=== PATIENT | female | born 1940 | race Caucasian/White ===

== ENCOUNTER 2021-12-10 11:30 | Observation (INO) ==
--- NOTE | 2021-11-13 08:18 | PAT Medication Instructions ---
Medication Instructions Date of Service November 13, 2021 Home Medications amlodipine 5 mg tablet 5 mg PO QAM aspirin 81 mg tablet,delayed release (Aspirin Low Dose) 81 mg PO QAM atenolol 25 mg tablet 25 mg PO QAM cholecalciferol (vitamin D3) 25 mcg (1,000 unit) tablet (Vitamin D3) 25 mcg PO QAM hydroxyzine HCl 25 mg tablet 25 mg PO DAILY PRN losartan 50 mg tablet 50 mg PO QAM metformin 500 mg tablet 500 mg PO QAM omega-3 fatty acids 500 mg PO QAM pravastatin 40 mg tablet 40 mg PO QAM trazodone 50 mg tablet 50 mg PO HS PRN ASK your prescriber and surgeon aspirin 81 mg tablet,delayed release (Aspirin Low Dose) 81 mg PO QAM STOP taking 2 weeks before surgery omega-3 fatty acids 500 mg PO QAM DO NOT take the morning of surgery cholecalciferol (vitamin D3) 25 mcg (1,000 unit) tablet (Vitamin D3) 25 mcg PO QAM losartan 50 mg tablet 50 mg PO QAM metformin 500 mg tablet 500 mg PO QAM Take morning of surgery With a small sip of water, OTHERWISE NOTHING TO EAT OR DRINK AFTER MIDNIGHT: amlodipine 5 mg tablet 5 mg PO QAM atenolol 25 mg tablet 25 mg PO QAM hydroxyzine HCl 25 mg tablet 25 mg PO DAILY PRN(if needed) pravastatin 40 mg tablet 40 mg PO QAM Take evening before surgery trazodone 50 mg tablet 50 mg PO HS PRN(if needed) Other Notes If you have any questions please call us at [phone] or [phone] or [phone] or [phone]
--- NOTE | 2021-11-13 08:45 | Anesthesiology Consultation ---
Date of Service November 13, 2021 Assessment & Plan (1) Encounter for pre-operative examination: - will fax PAT testing to PCP for continuity of care. - check BSG am DOS. - awaiting upcoming PCP pre-op evaluation scheduled 11/17 per S. - PONV: Pt reports needing IV medication and scop patch in past, denies adverse effects with scop patch. Will Rx scop patch for am DOS given reported severe PONV with just IV medication. - COVID screening: Per assessment on 11/13/2021: Travel screen negative, no known COVID-19 positive contacts or current COVID-19 related symptoms in past 2 weeks. Patient vaccinated. Surgeon arranging preop COVID testing, scheduled 12/08/2021. Awaiting results. Chart Review Chart Review: Pending: Refer to Additional Notes / Consult section and Patient seen in Pre Admission Testing Teaching & Discussion Pre-Anesthesia Teaching/Discussion Notes: Instructed NPO after midnight before surgery, except medications with 15 cc of water. Medication instructions provided according to the PAT guidelines. History Surgery Operation Date: 12/10/21 11:20 Proposed Procedures p Right Total Shoulder Arthroplasty - Brad Valladares MD Height/Weight Height: 5 ft 5 in Weight: 68.9 kg Allergies Allergy/AdvReac Type Severity Reaction Status Date / Time latex Allergy Mild Rash Verified 11/12/21 16:35 Medications Home Medications Medication Instructions Recorded Confirmed Last Taken amlodipine 5 mg tablet 5 mg PO QAM 11/12/21 11/12/21 Unknown aspirin 81 mg tablet,delayed 81 mg PO QAM 11/12/21 11/12/21 Unknown release (Aspirin Low Dose) atenolol 25 mg tablet 25 mg PO QAM 11/12/21 11/12/21 Unknown cholecalciferol (vitamin D3) 25 25 mcg PO QAM 11/12/21 11/12/21 Unknown mcg (1,000 unit) tablet (Vitamin D3) hydroxyzine HCl 25 mg tablet 25 mg PO DAILY PRN 11/12/21 11/12/21 Unknown losartan 50 mg tablet 50 mg PO QAM 11/12/21 11/12/21 Unknown metformin 500 mg tablet 500 mg PO QAM 11/12/21 11/12/21 Unknown omega-3 fatty acids 500 mg PO QAM 11/12/21 11/12/21 Unknown pravastatin 40 mg tablet 40 mg PO QAM 11/12/21 11/12/21 Unknown trazodone 50 mg tablet 50 mg PO HS PRN 11/12/21 11/12/21 Unknown Past Medical History Medical History (Updated 11/13/21 @ 09:09 by Melita Wu PA-C) Aspergillus fumigatus h/o-RLL pneumonia on voriconazole x 6 mos 06/2019-12/2019, follows with [facility] pulm CAD (coronary artery disease) non occlusive per [facility] records and most recent cath in 2007 CKD (chronic kidney disease) stage 3, GFR 30-59 ml/min follows with [facility] nephrology Diabetes mellitus, type 2 NIDDM GERD (gastroesophageal reflux disease) Hearing deficit History of blood transfusion 1960 History of uterine cancer (~1973) sx only Hyperlipidemia Hypertension pt monitors at home, recently started on amlodipine by nephrology Nausea and vomiting after administration of anesthetic agent Pt receives scop patch Pulmonary nodules follows with [facility] pulm-monitoring Transient ischemic attack (TIA) hx of---pt unaware of them, states PCP told her she one a long time ago--no deficits, no neurologist Patient denies h/o seizures, heart attack, heart failure, blood clots or blood transfusions. Exercise / Class Metabolic Activity II 4-5 Yardwork/Stairs/Walk up hill (denies CP or SOB with 1 FOS) Past Family History Family History Son Family history of reaction to anesthesia difficulty urinating after a surgery (pt unsure what surgery it was) Past Surgical History Surgical History History of appendectomy History of bilateral cataract extraction History of bladder suspension procedure x3 History of carpal tunnel release of both wrists History of cholecystectomy History of colonoscopy History of tooth extraction History of total hysterectomy with bilateral salpingo-oophorectomy (BSO) Past Anesthesia History No Hx of Anesthesia Complications and Other (son with post-op urinary retention) History of PONV History of PONV (Pt reports needing a scop patch plus IV medication, denies adverse effects with scop patch in past) and Hx of Motion Sickness Social History Smoking Status: Never smoker Do You Dip or Chew Tobacco: No Hx Alcohol Use: No Hx Substance Use: No substance use type: does not use Review of Systems Patient denies chest pain, shortness of breath, dyspnea on exertion, snoring, witnessed apneas, fever, chills, cough, wheezing, or palpitations. Physical Exam Vital Signs Vitals BP 168/78 (Pt reports home readings within PCP/nephrology goal range, she was advised to continue monitoring home BP and notify nephrology if outside advised range) She verbalized understanding, states will check later today, denies questions or concerns. P 68 TEMP 98.6 SP02 96% on RA RESP 17 Physical Full cervical extension range of motion without pain TMD 3.5 finger breaths Mallampati Score 3 Dentition: intact, full upper denture, denies chipped or loose teeth, caps/crowns or implants Lungs: normal respiratory effort. Clear throughout to auscultation, no adventitious breath sounds Cardiac: regular rate and rhythm, no murmurs noted Carotid arteries: negative bruit bilat Lab Results Anesthesia Preop Results Results Anesthesia Widget: WBC 5.92 K/uL (4.8-10.8) 11/13/21 Hgb 12.4 g/dL (12.0-16.0) 11/13/21 Hct 38.8 % (37-47) 11/13/21 Plt 339 K/uL (130-400) 11/13/21 Na 143 mmol/L (136-145) 11/13/21 K 4.3 mmol/L (3.5-5.1) 11/13/21 Cl 106 mmol/L (98-107) 11/13/21 CO2 27 mmol/L (21-32) 11/13/21 BUN 28 mg/dl (6-23) H 11/13/21 Creat 1.25 mg/dl (0.6-1.2) H 11/13/21 Glucose Level 96 mg/dl (70-99(Fasting)) 11/13/21 PT 10.7 Seconds (9.0-12.0) 11/13/21 PTT 26.2 Seconds (21.0-31.0) 11/13/21 INR 1.0 (0.9-1.1) 11/13/21 HA1c 6.0 % (4.5-5.6) H 11/13/21 Urine Color Yellow 11/13/21 Urine Appearance Cloudy (Clear) A 11/13/21 Urine pH 7.5 (4.5-7.5) 11/13/21 Urine Specific [place] 1.011 (1.000-1.030) 11/13/21 Urine Protein Negative (Negative) 11/13/21 Urine Glucose (UA) Negative (Negative) 11/13/21 Urine Ketones Negative (Negative) 11/13/21 Urine Blood Trace (Negative) H 11/13/21 Urine Nitrite Positive (Negative) A 11/13/21 Urine Bilirubin Negative (Negative) 11/13/21 Urine Urobilinogen Negative (Negative) 11/13/21 Urine Leukocyte Esterase 3+ (Negative) H 11/13/21 Urine WBC (Auto) >30 /hpf (0-5) H 11/13/21 Urine RBC (Auto) 0-4 /hpf (0-4) 11/13/21 Urine Hyaline Casts (Auto) 1-5 /lpf (0-5) 11/13/21 Urine Epithelial Cells (Auto) 10-20 /lpf (0-5) H 11/13/21 Urine Bacteria (Auto) 4+ (Negative) H 11/13/21 Blood Type A Positive 11/13/21 Antibody Screen NEGATIVE 11/13/21 Testing Laboratory Results Surgeon's office made aware of abnormal UA. Electrocardiogram Date: 11/13/21 NSR, rate 60 bpm Echocardiogram Date: 02/01/20 EF 62% Mild cLVH Normal LV wall motion Grade I diastolic dysfunction No significant valvular dysfunction Other Testing Chest CT 08/21/21 Small calcified granuloma posterior medially in the PAUL unchanged Small irregular nodule noted along the right oblique fissure unchanged Previously noted tree in bud appearance at the right lung base has improved. Minimal subpleural reticulations remain felt to represent minimal scarring
--- NOTE | 2021-12-05 08:50 | History & Physical Report ---
Date of Service December 05, 2021 Assessment & Plan (1) Primary osteoarthritis, right shoulder: Plan: Treatment options discussed with the patient. She has failed conservative measures. She would like to proceed with surgical intervention. Risks, benefits and alternatives to surgery including but not limited to infection, DVT, pain, stiffness, need for revision surgery, damage to blood vessels, damage to nerves, PE, , were discussed with the patient and they wish to proceed. Plan for right total shoulder arthroplasty scheduled for Augustine Rhodes on December [address] Valladares. All questions answered. Patient will follow-up postop. History of Present Illness Chief Complaint: Right shoulder pain Primary Care Provider: NO PCP 81-year-old female with past medical history significant for hypertension, diabetes mellitus type 2, TIA, CAD, CKD who presents with ongoing right shoulder pain. Patient has failed conservative measures including cortisone injection and anti-inflammatories. She has pain interfering with her daily activities. She would like to proceed with surgical intervention. Patient denies headaches, sweats, fevers, chills, double vision, blurred vision, cough, sore throat, dysphagia, chest pain, sob, wheezing, n/v/d/c, numbness, tingling, fatigue, urinary symptoms, mood disorders. ROS positive for right shoulder pain and stiffness. Allergies Allergy/AdvReac Type Severity Reaction Status Date / Time latex Allergy Mild Rash Verified 11/12/21 16:35 Home Medications Medication Instructions Recorded Confirmed Type amlodipine 5 mg tablet 5 mg PO QAM 11/12/21 11/12/21 History aspirin 81 mg tablet,delayed 81 mg PO QAM 11/12/21 11/12/21 History release (Pawan Low Dose Aspirin) atenolol 25 mg tablet 25 mg PO QAM 11/12/21 11/12/21 History cholecalciferol (vitamin D3) 25 25 mcg PO QAM 11/12/21 11/12/21 History mcg (1,000 unit) tablet (Vitamin D3) hydroxyzine HCl 25 mg tablet 25 mg PO DAILY PRN 11/12/21 11/12/21 History losartan 50 mg tablet 50 mg PO QAM 11/12/21 11/12/21 History metformin 500 mg tablet 500 mg PO QAM 11/12/21 11/12/21 History omega-3 fatty acids 500 mg PO QAM 11/12/21 11/12/21 History pravastatin 40 mg tablet 40 mg PO QAM 11/12/21 11/12/21 History trazodone 50 mg tablet 50 mg PO HS PRN 11/12/21 11/12/21 History Past Med/Surg History Medical History (Updated 12/05/21 @ 08:49 by Merlin Apodaca PA-C) Aspergillus fumigatus h/o-RLL pneumonia on voriconazole x 6 mos 06/2019-12/2019, follows with [facility] pulm CAD (coronary artery disease) non occlusive per [facility] records and most recent cath in 2007 CKD (chronic kidney disease) stage 3, GFR 30-59 ml/min follows with [facility] nephrology Diabetes mellitus, type 2 NIDDM GERD (gastroesophageal reflux disease) Hearing deficit History of blood transfusion 1959 History of uterine cancer (~1973) sx only Hyperlipidemia Hypertension pt monitors at home, recently started on amlodipine by nephrology Nausea and vomiting after administration of anesthetic agent Pt receives scop patch Pulmonary nodules follows with [facility] pulm-monitoring Transient ischemic attack (TIA) hx of---pt unaware of them, states PCP told her she one a long time ago--no deficits, no neurologist Surgical History History of appendectomy History of bilateral cataract extraction History of bladder suspension procedure x3 History of carpal tunnel release of both wrists History of cholecystectomy History of colonoscopy History of tooth extraction History of total hysterectomy with bilateral salpingo-oophorectomy (BSO) Family History Son Family history of reaction to anesthesia difficulty urinating after a surgery (pt unsure what surgery it was) Social History Smoking Status: Never smoker Second Hand Exposure: No; Hx Alcohol Use: No Hx Substance Use: No Preferred Language: [place] Communication Ability: Effective Business Sales Consultant Required: No Beliefs That Will Affect Care: None Current Living Situation: Alone Feels Safe at Home: Yes Assistive Devices: Glasses and Hearing Aid - Bilateral Review of Systems All systems reviewed & are unremarkable except as noted in HPI & below Physical Exam Constitutional: well developed and well nourished; no acute distress Eyes: PERRL, conjunctivae normal, anicteric sclerae ENMT: external ear and nose normal, oropharynx normal Neck: trachea midline, no thyromegaly Respiratory: normal respiratory effort, lungs clear to auscultation Cardiovascular: RRR, no murmur, no edema Musculoskeletal: Right shoulder: Crepitation with range of motion. Active painful range of motion. She has diffuse tenderness. Abduction to 80 degrees, forward flexion to 80 degrees, external rotation at 30 degrees. Skin: no rashes, warm and dry Neurologic: patellar DTR's 2+ bilat, sensation intact Psychiatric: A+Ox3, euthymic affect Results & Data ([facility]) Diagnostic Findings Right shoulder: X-rays demonstrate severe end-stage osteoarthritis glenohumeral joint with [id number] glenohumeral joint. MRI demonstrates intact rotator cuff.
[~2021-12-10 11:30] MED LIST: ACETAMINOPHEN 500 MG TAB PO SCH; CeleBREX 200 MG CAP PO SCH; FAMOTIDINE 20 MG TAB PO SCH; GABAPENTIN 300 MG CAP PO SCH; LIDOCAINE 2% 2 ML VIAL/AMP(20MG/ML) INFIL ONE; LR 15ML/HR IV SCH; METOCLOPRAMIDE HCL 10 MG TABLET PO SCH; MIDAZOLAM HCL 1 MG/ML 2ML VIAL ONE; PHENYLEPHRINE HCL 10 MG/ML VIAL ONE; PROPOFOL IV EMULSION 10 MG/ML 20 ML VIAL IV ONE; ROCURONIUM BROMIDE 10 MG/ML 5 ML VIAL IV ONE; Scopolamine 1 MG TDSY TD SCH; TRANEXAMIC ACID 1,000 MG **IV Intra-op IV SCH; TRANEXAMIC ACID 1,000 MG **IV Pre-op IV SCH; ceFAZolin 1000MG 1,000 MG/7.5 ML SYR IV SCH; fentaNYL citrate 100 MCG/2 ML VIAL ONE
[2021-12-10] MEDS ORDERED: BUPIVACAINE 0.5 % 5 MG/1 ML MPF 30ML VIAL ONE (11:43)
--- NOTE | 2021-12-10 12:02 | History & Physical Bridge Note ---
Date of Service December 10, 2021 History & Physical Bridge Note I have examined the patient, reviewed the History & Physical and in the interval since the performance of the History & Physical I have noted the following changes of clinical significance: no changes noted
[2021-12-10] MEDS ORDERED: EpINEphrine HCL INJ 1 MG/ML 1ML SYRINGE ONE (13:25)
[2021-12-10] MEDS ORDERED: KETAMINE 50 MG/5 ML SYRINGE ONE (14:23)
[2021-12-10] MEDS ORDERED: ePHEDrine sulfate 50 MG/ML AMP ONE (15:36)
[2021-12-10] MEDS ORDERED: DEXAMETHASONE SOD INJ 4 MG/ML VIAL ONE (15:36)
[2021-12-10] MEDS ORDERED: Scopolamine CHECK PATCH PLACEMENT SCH (16:00)
--- NOTE | 2021-12-10 16:58 | Operative Report ---
Post Operative Report Pre & Post Diagnosis Operation Date: 12/10/21 14:20 Pre-Op Diagnosis: Right Shoulder Osteoarthritis Post-Op Diagnosis: Right Shoulder Osteoarthritis, biceps tenosynovitis with loose body biceps tendon sheath I identified the patient and participated in the time-out.: Yes Procedure Operation Date: 12/10/21 14:20 Actual Procedures p Right Total Shoulder Arthroplasty And removal loose body biceps tendon sheath with tenosynovectomy and biceps Tenodesis (Right) - Brad Valladares MD Surgeon Brad Valladares MD Credit Collection Specialist Shaq SHIN Estimated Blood Loss 40 Findings Consistent with Post-Op Diagnosis Specimens Humeral head Drains 2 Hemovac Anesthesia Type General Regional Complications none Disposition Disposition: Recovery Room Indications 81-year-old female with chronic right shoulder pain failed conservative management. Patient has x-rays and MRI demonstrates she has intact rotator cuff with end-stage glenohumeral osteoarthritis [id number]. No subluxation. Description of Procedure The patient was taken to the operating room and anesthetized under a general and regional block anesthesia. A towel roll was placed under the medial border of the scapula of the right shoulder. The patient's head was placed on a foam headrest and protective eyewear was placed and the extremities were well padded. The arm was draped free in order to manipulate the shoulder as necessary. The shoulder exam demonstrated [id number] crepitation with any passive range of motion with forward flexion to 140 degrees abduction to 70 degrees external rotation to 30 degrees. Patient is relatively thin individual. The shoulder was sterilely prepped and draped in the usual sterile fashion. An anterior de ltopectoral approach was performed. A longitudinal incision was made in the interval. The skin was incised sharply and subcutaneous tissues dissected down to the fascia. The cephalic vein was identified and retracted laterally with the deltoid. Any crossing veins were tied off with silk ties and divided. The clavipectoral fascia was divided at the lateral margin of the conjoined tendon and divided up to the level of the coracoacromial ligament which was preserved. The upper 1 cm of the pectoralis was released for inferior exposure. The biceps tendon findings demonstrated an oval loose body in the biceps tendon sheath which was about 3-1/2 x 6 mm with chronic tenosynovitis biceps tendinitis. The rotator cuff tendon findings demonstrated intact rotator cuff. The circumflex vessels were identified and tied off with silk ties and divided laterally. The fibers and subscapularis were split longitudinally at the level of the circumflex vessels down to the capsule and then reflected off the inferior capsule using a Kitner elevator. The axillary nerve was identified with a tug test and protected with a blunt Demi retractor. The rotator interval was opened up and extended down to the glenoid. The loose body was removed from the biceps sheath and the biceps tendon sheath was excised up to the bicipital groove area. The biceps tendon was tenodesed to the pectoralis tendon with [id number] #2 FiberWire sutures in the proximal biceps was resected. The subscapularis tendon was taken down with a trans-tendinous incision leaving a cuff of tissue for repair on the lesser tuberosity. The incision was carried down to the tendon and the capsule and a #1 Vicryl suture was placed into the free end of the subscapularis tendon. The capsule was subperiosteally dissected off the inferior neck of the humerus exposing the humeral osteophytes which demonstrated moderately large inferior humeral osteophytes from anterior to posterior. The humerus was eburnated exposed bone. The osteophytes were excised with an artist chisel and a rongeur. The capsular release along the inferior neck of the humerus was completed. The humerus was then retracted posterior to the glenoid with a Fukuda retractor. The remainder of the biceps tendon and labrum was resected. The glenoid findings demonstrated small crescent shaped amount of articular cartilage remaining anteriorly the remainder was down to eburnated smooth bone with essentially central wear with type A wear pattern. I did an anterior inferior and posterior inferior release with electrocautery on bone and a Hamilton elevator with the axillary nerve continuing to be protected with the blunt Hohmann retractor inferiorly. When the releases were completed and the humeral head was exposed with some extension and external rotation and in anatomic head cut was made using the oscillating saw. The Tornier ascend flex press-fit total shoulder arthroplasty was used including the cemented Cortiloc glenoid component. Attention was first taken to preparation of the humeral shaft. A centralizing awl was used followed by broaches up to the appropriate templated size. The trial broach was left in place and a cut protector was placed. The humerus was then retracted posterior to the glenoid using a Bankart retractor anteriorly and blunt Demi and posterior Tornier glenoid retractor. A central drill hole was made into the glenoid. The glenoid was sized for a size small 35 radius Cortiloc component. The glenoid was reamed and the central drill widened and the guide for the 3 peripheral peg holes was placed in the peg holes were drilled and a trial component was placed with a tight fit. The trial was removed and the glenoid was irrigated with pulsatile lavage antibiotic solution and the drill holes were dried and packed with epinephrine-soaked tampons for hemostasis. The Palacos G cement was vacuum mixed. The final component was cemented into position and held in position with pressure until the cement cured. A humeral head trial was placed. A trial reduction was performed and the shoulder was stable. The trial was removed and the humerus and canal were irrigated with antibiotic solution with bacitracin. 3 drill holes were made into the hard bone in the bicipital groove lateral to the lesser tuberosity and 3 #5 FiberWire transosseous sutures were placed for repair of the subscapularis. After further irrigation of the canal and the final components were assembled. The final components were the size 4C standard ascend flex PTC humeral stem assembled to the 48 x 18 high offset humeral head. The implant was then impacted into the humerus with a tight press-fit. The humerus was reduced to the glenoid and stability verified. The subscapularis was repaired with the #5 FiberWire sutures in a Scotty-Josse suture technique and lateral row fixation with [id number] #2 FiberWire in the soft tissue. The rotator interval was closed and maximal external rotation. The pectoralis was then closed with [id number] #2 FiberWire suture. The sutures were passed through the biceps tendon as well to reinforce the biceps tenodesis. Range of motion was 140 flexion, 90 degrees abduction, external rotation to 50 degrees without tension on repair. 2 Hemovac drains were placed. The deltopectoral interval was closed with [id number] #1 Vicryl sutures. The subcutaneous tissues were closed with interrupted 2-0 Vicryl and the skin was closed with eros and a sterile dressing was applied. The patient tolerated the procedure well. Shaq SHIN participated as my assistant track and field coach throughout the procedure. He assisted in soft tissue retraction instrument management suture management and assisted in the subcutaneous and skin closure and will participate in the postoperative care the patient. I attest to the content of the Intraoperative Record and any orders documented therein. Any exceptions are noted below.
[2021-12-10] MEDS ORDERED: ePHEDrine sulfate 50 MG/ML AMP IV PRN (17:06)
[2021-12-10] MEDS ORDERED: FLUMAZENIL 0.1 MG/1 ML 10 ML VIAL IV PRN (17:06)
[2021-12-10] MEDS ORDERED: ONDANSETRON INJ 2 MG/ML 2 ML VIAL IV PRN ×2 (17:06→18:50)
[2021-12-10] MEDS ORDERED: ATROPINE SULFATE 0.1 MG/ML 10ML SYR IV PRN (17:06)
[2021-12-10] MEDS ORDERED: PROMETHAZINE HCL 12.5 MG in SODIUM CHLORIDE 0.9% 50 ML IV PRN (17:06)
[2021-12-10] MEDS ORDERED: fentaNYL citrate 100 MCG/2 ML VIAL IV PRN (17:06)
[2021-12-10] MEDS ORDERED: NALOXONE HCL 0.4 MG/1 ML VIAL/CARP IV PRN ×2 (17:06→18:50)
[2021-12-10] MEDS ORDERED: LABETALOL HCL IV 5 MG/ML 20ML IV PRN (17:06)
--- NOTE | 2021-12-10 17:24 | Anesthesiology Progress Note ---
Date of Service December 10, 2021 Anesthesia Post Procedure Vital Signs Vital Signs: Temp Pulse Pulse Resp BP BP Pulse Ox 12/10/21 17:15 75 17 145/76 H 93 12/10/21 17:05 79 16 151/81 H 92 12/10/21 16:58 36.4 C L 89 17 156/85 H 92 12/10/21 11:56 36.8 C 75 20 160/90 H 95 Transfer of Care Handoff Completed per policy Notes Mental Status: alert / awake / arousable Patient Amnestic to Procedure: Yes Nausea / Vomiting: adequately controlled Pain: adequately controlled Airway Patency, RR, SpO2: stable & adequate BP & HR: stable & adequate Hydration State: stable & adequate Anesthetic Complications: no major complications apparent
--- NOTE | 2021-12-10 17:42 | XRay Report ---
XR shoulder RT min 2V routine CLINICAL HISTORY: Post shoulder surgery TECHNIQUE: 3 views of the right shoulder were obtained. Comparison: None available at the time of this dictation. FINDINGS: Patient is status post shoulder arthroplasty with expected postsurgical changes including soft tissue swelling, subcutaneous emphysema, and surgical staple placement. No periarticular lucency or hardwar e fracture is seen. IMPRESSION: Expected postoperative appearance status post placement of shoulder arthroplasty. ACT 112: Negative or not required by law. Electronically signed by: Reagan Goldman M.D. 12/10/2021 5:40 PM
[2021-12-10] MEDS ORDERED: hydrOXYzine HCl 25 MG TAB PO PRN (18:50)
[2021-12-10] MEDS ORDERED: traZODone HCL 50 MG TAB PO PRN (18:50)
[2021-12-10] MEDS ORDERED: HYDROmorphone INJ 0.5 MG/0.5 ML SYR IV PRN (18:50)
[2021-12-10] MEDS ORDERED: bisacodyL 10 MG SUPP PR PRN (18:50)
[2021-12-10] MEDS ORDERED: MAGNESIUM HYDROXIDE SUSP 30 ML UDC PO PRN (18:50)
[2021-12-10] MEDS ORDERED: GLUCAGON FOR INJ 1 MG VIAL SQ PRN (18:59)
[2021-12-10] MEDS ORDERED: GLUCOSE 10 TABS/TUBE PO PRN (18:59)
[2021-12-10] MEDS ORDERED: GLUCOSE 40% GEL 15 GM TUBE PO PRN (18:59)
[2021-12-10] MEDS ORDERED: CARBOHYDRATES FOR HYPOGLYCEMIA PO PRN (18:59)
[2021-12-10] MEDS ORDERED: DEXTROSE 50% 50 ML SYRINGE IV PRN (18:59)
--- NOTE | 2021-12-10 19:08 | Consultation ---
Date of Consultation December 10, 2021 Assessment & Plan (1) Primary osteoarthritis, right shoulder: (2) Pre-diabetes: (3) CAD (coronary artery disease): (4) Hypertension: (5) CKD (chronic kidney disease) stage 3, GFR 30-59 ml/min: This is a 81-year-old female who has a significant past medical history of nonocclusive CAD, HTN, HLD, history of TIA, CKD stage III, prediabetes, history of Aspergillus fumigatus treated with voriconazole in 12/2019, history of uterine cancer, GERD who presents for elective right total shoulder arthroplasty by Dr. Valladares. Primary osteoarthritis, right shoulder Status post right total shoulder arthroplasty by Dr. Valladares, POD #0 EBL 40ml Pain/wound management per orthopedics Activity and therapy as directed by orthopedics Encourage incentive spirometry and wean oxygen as able Monitor hemoglobin, preop 12.4 Prediabetes A1c 6.0 Hold metformin NovoLog correction factor ordered, liberalized given age CAD HTN HLD Continue amlodipine, atenolol, losartan with parameters Continue aspirin, statin History of TIA Continue ASA and statin CKD stage III Baseline creatinine 1.25 Avoid nephrotoxic agents History of Aspergillus fumigatus Follows pulmonology Treated with voriconazole in December 2019 DVT prophylaxis: Per primary, SCDs Dispo: Per primary PCP: Yvette Bedolla FULL CODE Patient was seen and examined in collaboration with, Dr. Schultz, please see addendum Thank you for this consultation. We will follow the patient with you during their hospital stay. You can reach a member of the [facility] Hospitalist Team 24/01 via hospitalist role on tiger text. Supervising Physician Co-Signing Physician Notes 81 yo F w/ PMH of nonocclusive CAD, HTN, HLD, TIA, CKD stage III, prediabetes is s/p Right Total Shoulder Arthroplasty And removal loose body biceps tendon sheath with tenosynovectomy and biceps Tenodesis (Right) - Brad Valladares MD on 12/10/21. PT/OT/DVT Px/Pain Mx per Primary. IS. Hb in AM, watch out for ABL anemia. Pt hemodynamically stable and on 2L NC O2 at bedside. Rt shoulder w/ dressing w/ Hemovac drain. AandP and Exam as above. I have seen and examined the patient and have discussed the case with the provider above. I agree with the assessment and plan as stated. History of Present Illness Requesting Physician: Dr. Valladares Reason for Consultation: Postop medical management Attending Physician: Brad Valladares MD History of Present Illness This is a 81-year-old female who has a significant past medical history of nonocclusive CAD, HTN, HLD, history of TIA, CKD stage III, prediabetes, history of Aspergillus fumigatus treated with voriconazole in 12/2019, history of uterine cancer, GERD who presents for elective right total shoulder arthroplasty by Dr. Valladares. She tolerated the procedure well. She offers no acute concerns postoperatively and is actually, "surprised," by how well she currently feels. She denies any pain to her right shoulder. She is able to move her first 3 fingers thus far. She denies any fever, chills, sweats , lightheadedness, dizziness, chest pain, shortness breath, cough, URI symptoms, nausea, vomiting, abdominal pain. She further denies any dysuria, increased urgency or frequency with urination or hematuria. She is gaining an appetite and requesting dinner. Of significance patient does have history of CKD stage III. She does follow with nephrology. Her baseline creatinine is 1.25. She also has prediabetes with most recent A1c of 6.0. This is controlled with metformin. She also has history of CAD and hypertension controlled on multidrug regimen of amlodipine, atenolol and losartan. She is also on aspirin and statin. Preop lab work was reviewed. Her urine was abnormal and culture grew greater than 100,000 E. coli. She was treated with a course of oral amoxicillin to complete in its entirety. She no longer has urinary symptoms. Allergies Allergy/AdvReac Type Severity Reaction Status Date / Time latex Allergy Mild Rash Verified 12/10/21 12:02 acetaminophen [From [place]] AdvReac Mild itching Verified 12/10/21 18:51 adhesive tape AdvReac Mild rash Verified 12/10/21 18:51 hydrocodone [From [place]] AdvReac Mild itching Verified 12/10/21 18:51 nitrofurantoin AdvReac Mild n/v Verified 12/10/21 18:51 [From Macrobid] sulfamethoxazole AdvReac Mild redness Verified 12/10/21 18:51 [From Bactrim] trimethoprim [From Bactrim] AdvReac Mild redness Verified 12/10/21 18:51 Home Medications Medication Instructions Recorded Confirmed Type amlodipine 5 mg tablet 5 mg PO QAM 11/12/21 12/10/21 History aspirin 81 mg tablet,delayed 81 mg PO QAM 11/12/21 12/10/21 History release (Pawan Low Dose Aspirin) atenolol 25 mg tablet 25 mg PO QAM 11/12/21 12/10/21 History cholecalciferol (vitamin D3) 25 25 mcg PO QAM 11/12/21 12/10/21 History mcg (1,000 unit) tablet (Vitamin D3) hydroxyzine HCl 25 mg tablet 25 mg PO DAILY PRN 11/12/21 12/10/21 History losartan 50 mg tablet 50 mg PO QAM 11/12/21 12/10/21 History metformin 500 mg tablet 500 mg PO QAM 11/12/21 12/10/21 History omega-3 fatty acids 500 mg PO QAM 11/12/21 12/10/21 History pravastatin 40 mg tablet 40 mg PO QAM 11/12/21 12/10/21 History trazodone 50 mg tablet 50 mg PO HS PRN 11/12/21 12/10/21 History Patient History Medical History (Updated 12/10/21 @ 19:02 by Adelita Sapp PA-C) Aspergillus fumigatus h/o-RLL pneumonia on voriconazole x 6 mos 06/2019-12/2019, follows with [facility] pulm CAD (coronary artery disease) non occlusive per [facility] records and most recent cath in 2007 CKD (chronic kidney disease) stage 3, GFR 30-59 ml/min follows with [facility] nephrology Diabetes mellitus, type 2 NIDDM GERD (gastroesophageal reflux disease) Hearing deficit History of blood transfusion 1959 History of uterine cancer (~1973) sx only Hyperlipidemia Hypertension pt monitors at home, recently started on amlodipine by nephrology Nausea and vomiting after administration of anesthetic agent Pt receives scop patch Pulmonary nodules follows with [facility] pulm-monitoring Transient ischemic attack (TIA) hx of---pt unaware of them, states PCP told her she one a long time ago--no deficits, no neurologist Surgical History History of appendectomy History of bilateral cataract extraction History of bladder suspension procedure x3 History of carpal tunnel release of both wrists History of cholecystectomy History of colonoscopy History of tooth extraction History of total hysterectomy with bilateral salpingo-oophorectomy (BSO) Family History Son Family history of reaction to anesthesia difficulty urinating after a surgery (pt unsure what surgery it was) Sister Bone cancer Father COPD (chronic obstructive pulmonary disease) Social History Smoking Status: Never smoker Second Hand Exposure: No; Do You Dip or Chew Tobacco: No; Tobacco Cessation Education Requested by Patient: No Hx Alcohol Use: No Hx Substance Use: No Preferred Language: Welsh Communication Ability: Effective Adhesive Bandage Making Operator Required: No Beliefs That Will Affect Care: None Current Living Situation: Alone Other Information That Helps Us Care for You: No Feels Safe at Home: Yes Safety Concerns: Feels Safe At This Time Assistive Devices: Glasses and Hearing Aid - Bilateral Review of Systems Review of Systems: All systems reviewed & are unremarkable except as noted in HPI & below Physical Exam Physical Exam: Constitutional: WD/WN, female, vitals as above, NAD, sitting up in bed, pleasant, conversing easily Head: Normocephalic, Atraumatic Eyes: PERRL, conjunctivae normal, anicteric sclerae ENMT: external ear and nose normal, oropharynx normal Neck: trachea midline, no thyromegaly normal visual inspection Respiratory: On O2 via NC, O2 saturation 92%, normal respiratory effort, lungs clear to auscultation, no wheeze, rales, rhonchi. Normal insp/exp effort, no accessory muscle use Cardiovascular: RRR, no murmur, no edema, SCDs in place bilaterally vessels: no JVD or carotid bruit Chest: normal inspection of chest Abdomen: normal bowel sounds, soft, nontender, no hepatosplenomegaly Musculoskeletal: no cyanosis or clubbing, right upper extremity immobilizer in place, NVI distally, Hemovac with serosanguineous drainage Skin: no rashes, warm and dry normal turgor Neurologic: PERRL, EOMI, accommodation nl, no face palsy, no dysarthria CN's II-XI intact bilaterally and moves all extremities Psychiatric: A+Ox3, euthymic affect Lymphatic: no cervical or axillary lymphadenopathy : deferred Results & Data ([facility]) Vital Signs (Past 12 Hours) Vital Signs Temp Pulse Pulse Pulse Resp BP BP 12/10/21 18:32 36.5 C 79 16 131/70 12/10/21 18:03 36.4 C L 74 16 125/66 12/10/21 17:35 36.2 C L 70 17 129/69 12/10/21 17:25 71 17 142/75 H 12/10/21 17:15 75 17 145/76 H 12/10/21 17:05 79 16 151/81 H 12/10/21 16:58 36.4 C L 89 17 156/85 H 12/10/21 11:56 36.8 C 75 20 160/90 H Pulse Ox 12/10/21 18:32 92 12/10/21 18:03 93 12/10/21 17:35 93 12/10/21 17:25 95 12/10/21 17:15 93 12/10/21 17:05 92 12/10/21 16:58 92 12/10/21 11:56 95 Laboratory Results Preoperative lab work 11/13/2021 revealed WBC 5.92, H&H 12.4 and 38.8, platelet 339, BUN 28, creatinine 1.25, potassium 4.3, A1c 6.0 Urinalysis greater than 100,000 E. coli Diagnostic Findings Shoulder X-Ray 12/10/21 17:10 XR shoulder RT min 2V routine CLINICAL HISTORY: Post shoulder surgery TECHNIQUE: 3 views of the right shoulder were obtained. Comparison: None available at the time of this dictation. FINDINGS: Patient is status post shoulder arthroplasty with expected postsurgical changes including soft tissue swelling, subcutaneous emphysema, and surgical staple placement. No periarticular lucency or hardware fracture is seen. IMPRESSION: Expected postoperative appearance status post placement of shoulder arthroplasty. ACT 112: Negative or not required by law. Electronically signed by: Reagan Goldman M.D. 12/10/2021 5:40 PM Medications Administered Current Inpatient Medications Acetaminophen (Acetaminophen 500 Mg Tab) 1,000 mg PO Q8 [facility] Stop: 01/09/22 21:59 Amlodipine Besylate (Amlodipine Besylate 5 Mg Tab) 5 mg PO QAM [facility] Stop: 01/10/22 08:59 Aspirin (Aspirin 81 Mg Ectab) 81 mg PO QAM [facility] Stop: 01/10/22 08:59 Atenolol (Atenolol 25 Mg Tablet) 25 mg PO QAM [facility] Stop: 01/10/22 08:59 Atropine Sulfate (Atropine Sulfate 0.1 Mg/Ml 10ml Syr) 0.5 mg IV Q1M PRN PRN Reason: PACU Use-HR<40 &/or Bradycardi Stop: 12/11/21 01:06 Bisacodyl (Bisacodyl 10 Mg Supp) 10 mg [place] DAILY PRN PRN Reason: Constipation Stop: 01/09/22 18:49 Docusate Sodium (Docusate Sodium 100 Mg Cap) 100 mg PO BID [facility] Stop: 01/09/22 20:59 Ephedrine Sulfate (Ephedrine Sulfate 50 Mg/Ml Amp) 5 mg IV Q5M PRN PRN Reason: PACU Use Only-SBP<90 mmHg Stop: 12/11/21 01:06 Fentanyl Citrate (Fentanyl Citrate 100 Mcg/2 Ml Vial) 25 mcg IV Q5M PRN PRN Reason: PACU Use Only-Pain Stop: 12/11/21 01:06 Flumazenil (Flumazenil 0.1 Mg/1 Ml 10 Ml Vial) 0.2 mg IV Q2M PRN PRN Reason: PACU Use Only-Benzo Reversal Stop: 12/11/21 01:06 Hydromorphone HCl (Hydromorphone Inj 0.5 Mg/0.5 Ml Syr) 0.25 mg IV Q4H PRN PRN Reason: Pain or Pre PT Stop: 12/24/21 18:49 Hydroxyzine HCl (Hydroxyzine Hcl 25 Mg Tab) 25 mg PO DAILY PRN PRN Reason: Itching Stop: 01/09/22 18:49 Promethazine HCl 12.5 mg/ (Sodium Chloride) 50.5 mls @ 204 mls/hr IV ONCE PRN PRN Reason: PACU Use Only-Nausea/Vomiting Stop: 12/11/21 01:07 Sodium Chloride (Nss 1000ml) 1,000 mls @ 100 mls/hr IV .Q10H [facility] Stop: 12/11/21 18:59 Cefazolin Sodium (Ancef 1000mg) 1,000 mg in 7.5 mls @ 2.5 mls/min IV Q8H [facility]; Protocol Stop: 12/11/21 07:17 Labetalol HCl (Labetalol Hcl Iv 5 Mg/Ml 20ml) 5 mg IV Q5M PRN PRN Reason: PACU Use-SBP>160 or DBP>100 Stop: 12/11/21 01:07 Losartan Potassium (Losartan Potassium 50 Mg Tab) 50 mg PO [facility] Stop: 01/10/22 08:59 Magnesium Hydroxide (Magnesium Hydroxide Susp 30 Ml Udc) 30 ml PO Q6H PRN PRN Reason: Constipation Stop: 01/09/22 18:49 Metformin HCl (Metformin Hcl 500 Mg Tab) 500 mg PO [facility] Stop: 01/10/22 08:59 Multivitamins (Multivitamin Tab) 1 tab PO [facility] Stop: 01/10/22 08:59 Naloxone HCl (Naloxone Hcl 0.4 Mg/1 Ml Vial/Carp) 0.2 mg IV Q2M PRN PRN Reason: PACU Use Only-Opiate Reversal Stop: 12/11/21 01:06 Naloxone HCl (Naloxone Hcl 0.4 Mg/1 Ml Vial/Carp) 0.1 mg IV Q5M PRN PRN Reason: Oversedation/Resp Depression Stop: 01/09/22 18:49 Non-Formulary Medication (Cholecalciferol (Vitamin D3) [Vitamin D3]) 25 mcg PO [facility] Stop: 01/10/22 08:59 Ondansetron HCl (Ondansetron Inj 2 Mg/Ml 2 Ml Vial) 4 mg IV ONCE PRN PRN Reason: PACU Use Only-Nausea/Vomiting Stop: 12/11/21 01:07 Ondansetron HCl (Ondansetron Inj 2 Mg/Ml 2 Ml Vial) 4 mg IV Q6H PRN PRN Reason: Nausea And Vomiting Stop: 01/09/22 18:49 Oxycodone HCl (Oxycodone Hcl Ir 5 Mg Tab (Immediate Release)) 5 - 10 mg PO Q4H PRN PRN Reason: Pain or Pre PT Stop: 12/24/21 18:49 Pravastatin Sodium (Pravastatin Sod 40 Mg Tab) 40 mg PO [facility] Stop: 01/10/22 08:59 Sennosides (Senna 8.6 Mg Tab) 17.2 mg PO HS [facility] Stop: 01/09/22 20:59 Trazodone HCl (Trazodone Hcl 50 Mg Tab) 50 mg PO HS PRN PRN Reason: Sleep Stop: 01/09/22 18:49 ECG Rate (beats per minute): 60 Rhythm: normal sinus
[2021-12-10] MEDS: SODIUM CHLORIDE 0.9% 1000ML 1,000 ML IV SCH (20:07)
[2021-12-10] MEDS ORDERED: SENNA 8.6 MG TAB PO SCH (21:00)
[2021-12-10] MEDS: INSULIN ASPART PER UNIT SC SCH (21:54)
[2021-12-10] MEDS: DOCUSATE SODIUM 100 MG CAP PO SCH (21:54)
[2021-12-10] MEDS: ceFAZolin 1000MG 1,000 MG/7.5 ML SYR IV SCH (21:55)
[2021-12-10] MEDS: ACETAMINOPHEN 500 MG TAB PO SCH (21:57)
[2021-12-10] MEDS: oxyCODONE HCL IR 5 MG TAB (IMMEDIATE RELEASE) PO PRN (22:01)
[2021-12-11] MEDS: ACETAMINOPHEN 500 MG TAB PO SCH ×2 (05:00→13:55)
[2021-12-11] MEDS: oxyCODONE HCL IR 5 MG TAB (IMMEDIATE RELEASE) PO PRN ×3 (05:01→15:31)
[2021-12-11] MEDS: ceFAZolin 1000MG 1,000 MG/7.5 ML SYR IV SCH (05:16)
[2021-12-11] MEDS: SODIUM CHLORIDE 0.9% 1000ML 1,000 ML IV SCH ×2 (05:27→06:00)
--- NOTE | 2021-12-11 07:48 | Orthopedic Progress Note ---
Date of Service December 11, 2021 Assessment & Plan (1) Primary osteoarthritis, right shoulder: Plan: Postop day #1 right total shoulder -PT/OT no active motion of shoulder -Pain management as written -DVT prophylaxis SCDs, aspirin twice daily -A.m. labs are pending -Discharge planning: Plan on discharge home with outpatient therapy. Possible discharge today. Will recheck later today after PT. Admission and Anticipated Discharge Date Admission Date: December 10, 2021 Subjective Patient is postop day 1 right total shoulder. She is doing well this morning. Pain is controlled. No other complaints. Review of Systems Review of Systems: All systems reviewed & are unremarkable except as noted in Subjective Physical Exam Physical Exam: Sling is in place. Dressing is clean, dry, intact. Fingers are mobile. She does have some numbness still in the fingertips. Has good electric motor fitter strength. Neurovascular status intact Constitutional: well developed and well nourished; no acute distress Results & Data ([facility]) Vital Signs (Past 12 Hours) Vital Signs Temp Pulse Resp BP Pulse Ox 12/10/21 21:58 36.6 C 77 16 135/73 91
[2021-12-11 07:56] LABS: Basophils # (auto) 0.01 K/uL (0-0.2); Basophils % (auto) 0.1 %; Hemoglobin 10.6 g/dL (12.0-16.0); Immature Granulocytes # (auto) 0.03 K/uL (0.00-0.02); Immature Granulocytes % (auto) 0.2 %; Lymphocytes # (auto) 1.02 K/uL (1.2-3.4); Lymphocytes % (auto) 7.3 %; Mean Corpuscular Hemoglobin 29.6 pg (25-34); Mean Corpuscular Hgb Conc 32.1 g/dL (32-36); Mean Corpuscular Volume 92.2 fL (80-100); Mean Platelet Volume 9.7 fL (7.4-10.4); Monocytes # (auto) 0.84 K/uL (0.11-0.59); Neutrophils # (auto) 12.08 K/uL (1.4-6.5); Neutrophils % (auto) 86.4 %; Platelet Count 292 K/uL (130-400); RDW Coefficient of Variation 12.9 % (11.5-14.5); RDW Standard Deviation 43.8 fL (36.4-46.3); Red Blood Count 3.58 M/uL (4.2-5.4); White Blood Count 13.98 K/uL (4.8-10.8)
[2021-12-11 08:06] LABS: BUN Creatinine Ratio 19.3 (10-20); Calcium 9.1 mg/dl (8.5-10.1); Creatinine Clr Calc Pharmacy 28.4 ml/min; Est GFR (African American) 40.7 ml/min; Est GFR (Non-African American) 35.1 ml/min; Potassium 4.4 mmol/L (3.5-5.1)
[2021-12-11] MEDS: DOCUSATE SODIUM 100 MG CAP PO SCH (08:11)
[2021-12-11] MEDS: INSULIN ASPART PER UNIT SC SCH ×2 (08:52→13:14)
[2021-12-11] MEDS ORDERED: ATENOLOL 25 MG TABLET PO SCH (09:00)
[2021-12-11] MEDS ORDERED: PRAVASTATIN SOD 40 MG TAB PO SCH (09:00)
[2021-12-11] MEDS ORDERED: CHOLECALCIFEROL 1,000 UNITS 25 MCG TAB PO SCH (09:00)
[2021-12-11] MEDS ORDERED: ASPIRIN 81 MG ECTAB PO SCH (09:00)
[2021-12-11] MEDS ORDERED: metFORMIN HCL 500 MG TAB PO SCH (09:00)
[2021-12-11] MEDS ORDERED: LOSARTAN POTASSIUM 50 MG TAB PO SCH (09:00)
[2021-12-11] MEDS ORDERED: MULTIVITAMIN TAB PO SCH (09:00)
[2021-12-11] MEDS ORDERED: amLODIPine BESYLATE 5 MG TAB PO SCH (09:00)
--- NOTE | 2021-12-11 12:26 | Hospitalist Progress Note ---
Date of Service December 11, 2021 Assessment & Plan (1) Primary osteoarthritis, right shoulder: (2) Pre-diabetes: (3) CAD (coronary artery disease): (4) Hypertension: (5) CKD (chronic kidney disease) stage 3, GFR 30-59 ml/min: Plan: This is a 81-year-old female who has a significant past medical history of nonocclusive CAD, HTN, HLD, history of TIA, CKD stage III, prediabetes, history of Aspergillus fumigatus treated with voriconazole in 12/2019, history of uterine cancer, GERD who presented for elective right total shoulder arthroplasty by Dr. Valladares. Right Shoulder Osteoarthritis, biceps tenosynovitis with loose body biceps tendon sheath - s/p Right Total Shoulder Arthroplasty And removal loose body biceps tendon sheath with tenosynovectomy and biceps Tenodesis by Dr Valladares, POD #1 - Further management per primary team Anemia- post op- no transfusion required. Recommend oral iron supplementation- defer to primary team. Leucocytosis- likely due to periop steroid vs reactive. Well looking. No indication for ABx currently. F/u with PCP Prediabetes- A1c 6.0; can resume metformin at discharge CAD, HTN, HLD- Continue amlodipine, atenolol, losartan, aspirin, statin History of TIA- Continue ASA and statin CKD stage III- Creatinine mildly elevated today from baseline but overall relatively stable, f/u with PCP with repeat BMP in a week History of Aspergillus fumigatus- Follows pulmonology; Treated with voriconazole in December 2019 Admission and Anticipated Discharge Date Admission Date: December 10, 2021 Subjective She feels fine and ready to go home. Pain is tolerable but asking for pain meds at discharge. Tolerating oral intake well without issues. Voiding without issues. Passing gas but no BM yet. Physical Exam Physical Exam: General: Sitting comfortably in chair, not in distress, on room air HEENT: EOMI, [place], MMM Chest: Clear breath sounds bilaterally, no wheezes or crackles CVS: Regular rate and rhythm, normal heart sounds, no murmur Abdomen: Soft, non tender, not distended, normal bowel sounds Neuro: Awake, alert, oriented, conversing well, non focal Extremities: RUE in sling. Dressing clean dry intact. Results & Data Results & Data ([facility]) Vital Signs (Past 12 Hours) Vital Signs Temp Pulse Resp BP Pulse Ox 12/11/21 08:30 36.6 C 61 16 106/65 91 Laboratory Results Laboratory Results WBC 13.98 K/uL (4.8-10.8) H 12/11/21 07:34 RBC 3.58 M/uL (4.2-5.4) L 12/11/21 07:34 Hgb 10.6 g/dL (12.0-16.0) L 12/11/21 07:34 Hct 33.0 % (37-47) L 12/11/21 07:34 MCV 92.2 fL (80-100) 12/11/21 07:34 MCH 29.6 pg (25-34) 12/11/21 07:34 MCHC 32.1 g/dL (32-36) 12/11/21 07:34 RDW Std Deviation 43.8 fL (36.4-46.3) 12/11/21 07:34 RDW Coeff of Silvestre 12.9 % (11.5-14.5) 12/11/21 07:34 Plt Count 292 K/uL (130-400) 12/11/21 07:34 MPV 9.7 fL (7.4-10.4) 12/11/21 07:34 Immature Gran % (Auto) 0.2 % 12/11/21 07:34 Neut % (Auto) 86.4 % 12/11/21 07:34 Lymph % (Auto) 7.3 % 12/11/21 07:34 [place] % (Auto) 6.0 % 12/11/21 07:34 Eos % (Auto) 0.0 % 12/11/21 07:34 Baso % (Auto) 0.1 % 12/11/21 07:34 Neut # (Auto) 12.08 K/uL (1.4-6.5) H 12/11/21 07:34 Lymph # (Auto) 1.02 K/uL (1.2-3.4) L 12/11/21 07:34 [place] # (Auto) 0.84 K/uL (0.11-0.59) H 12/11/21 07:34 Eos # (Auto) 0.00 K/uL (0-0.5) 12/11/21 07:34 Baso # (Auto) 0.01 K/uL (0-0.2) 12/11/21 07:34 Immature Gran # (Auto) 0.03 K/uL (0.00-0.02) H 12/11/21 07:34 Sodium 136 mmol/L (136-145) 12/11/21 07:34 Potassium 4.4 mmol/L (3.5-5.1) 12/11/21 07:34 Chloride 106 mmol/L (98-107) 12/11/21 07:34 Carbon Dioxide 24 mmol/L (21-32) 12/11/21 07:34 Anion Gap 6 (3-11) 12/11/21 07:34 BUN 27 mg/dl (6-23) H 12/11/21 07:34 Creatinine 1.40 mg/dl (0.6-1.2) H 12/11/21 07:34 Est Cr Clr Drug Dosing 28.4 ml/min 12/11/21 07:34 Est GFR ( Amer) 40.7 ml/min 12/11/21 07:34 Est GFR (Non-Af Amer) 35.1 ml/min 12/11/21 07:34 BUN/Creatinine Ratio 19.3 (10-20) 12/11/21 07:34 Glucose 125 mg/dl (70-99(Fasting)) H 12/11/21 07:34 POC Glucose 143 mg/dl (70-99) H 12/11/21 11:47 Calcium 9.1 mg/dl (8.5-10.1) 12/11/21 07:34 SARS-CoV-2, RNA, NAAT NEGATIVE (NEGATIVE) 12/10/21 11:35 Impressions Shoulder X-Ray 12/10/21 17:10 XR shoulder RT min 2V routine CLINICAL HISTORY: Post shoulder surgery TECHNIQUE: 3 views of the right shoulder were obtained. Comparison: None available at the time of this dictation. FINDINGS: Patient is status post shoulder arthroplasty with expected postsurgical changes including soft tissue swelling, subcutaneous emphysema, and surgical staple placement. No periarticular lucency or hardware fracture is seen. IMPRESSION: Expected postoperative appearance status post placement of shoulder arthroplasty. ACT 112: Negative or not required by law. Electronically signed by: Reagan Goldman M.D. 12/10/2021 5:40 PM
--- NOTE | 2021-12-15 09:24 | Discharge Summary ---
Date of Service December 15, 2021 Admission HPI Per Admitting Provider 81-year-old female with past medical history significant for hypertension, diabetes mellitus type 2, TIA, CAD, CKD who presents with ongoing right shoulder pain. Patient has failed conservative measures including cortisone injection and anti-inflammatories. She has pain interfering with her daily activities. She would like to proceed with surgical intervention. Patient denies headaches, sweats, fevers, chills, double vision, blurred vision, cough, sore throat, dysphagia, chest pain, sob, wheezing, n/v/d/c, numbness, tingling, fatigue, urinary symptoms, mood disorders. ROS positive for right shoulder pain and stiffness. Admission Exam Per Admitting Provider Physical Exam Constitutional: well developed and well nourished; no acute distress Eyes: PERRL, conjunctivae normal, anicteric sclerae ENMT: external ear and nose normal, oropharynx normal Neck: trachea midline, no thyromegaly Respiratory: normal respiratory effort, lungs clear to auscultation Cardiovascular: RRR, no murmur, no edema Musculoskeletal: Right shoulder: Crepitation with range of motion. Active painful range of motion. She has diffuse tenderness. Abduction to 80 degrees, forward flexion to 80 degrees, external rotation at 30 degrees. Skin: no rashes, warm and dry Neurologic: patellar DTR's 2+ bilat, sensation intact Psychiatric: A+Ox3, euthymic affect Principal Diagnosis Right Shoulder Osteoarthritis Discharge Data Allergies Allergy/AdvReac Type Severity Reaction Status Date / Time latex Allergy Mild Rash Verified 12/10/21 12:02 acetaminophen [From [place]] AdvReac Mild itching Verified 12/10/21 18:51 adhesive tape AdvReac Mild rash Verified 12/10/21 18:51 hydrocodone [From [place]] AdvReac Mild itching Verified 12/10/21 18:51 nitrofurantoin AdvReac Mild n/v Verified 12/10/21 18:51 [From Macrobid] sulfamethoxazole AdvReac Mild redness Verified 12/10/21 18:51 [From Bactrim] trimethoprim [From Bactrim] AdvReac Mild redness Verified 12/10/21 18:51 Consultations 12/08/21 13:47 Consult Hospitalist Routine Procedures Performed Operation Date: 12/10/21 14:20 Actual Procedures p Right Total Shoulder Arthroplasty And Biceps Tenodesis Repair(Right) - Brad Valladares MD Ordered Studies 12/10/21 05:00 US - OR guided needle placemen Routine Hospital Course (1) Primary osteoarthritis, right shoulder: Patient:TIANNA CASTILLO Admit Date:12/10/21 MR#:[id number] Att Phy:Brad Valladares M.D. Acct ID:[id number] Sona Phy:Yvette Bedolla PA-C Date:1940 Fam Phy: Age:81 Location:3N Sex:F Room/Bed:N388-1 cc: ~ *NOTICE TO RECEIVING GREEN PARTY/AGENCY This information is strictly Confidential and protected under [place] law. [place] law prohibits you from making any further disclosure of this information unless further disclosure is expressly permitted by the written consent of the person to whom it pertains or is authorized by law. A general authorization for the release of medical or other information is not sufficient for this purpose. Hospital accepts no responsibility if the information is made available to any other person, INCLUDING THE PATIENT. Date of Service December 11, 2021 Assessment & Plan (1) Primary osteoarthritis, right shoulder: Plan: Postop day #1 right total shoulder -PT/OT no active motion of shoulder -Pain management as written -DVT prophylaxis SCDs, aspirin twice daily -A.m. labs are pending -Discharge planning: Plan on discharge home with outpatient therapy. Possible discharge today. Will recheck later today after PT. Addendum: Pt seen by myself around lunchtime. Doing well. Pain controlled. Plan for dc to home. Admission and Anticipated Discharge Date Admission Date: December 10, 2021 Subjective Patient is postop day 1 right total shoulder. She is doing well this morning. Pain is controlled. No other complaints. Review of Systems Review of Systems: All systems reviewed & are unremarkable except as noted in Subjective Physical Exam Physical Exam: Sling is in place. Dressing is clean, dry, intact. Fingers are mobile. She does have some numbness still in the fingertips. Has good master tax advisor strength. Neurovascular status intact Constitutional: well developed and well nourished; no acute distress Results & Data ([facility]) Vital Signs (Past 12 Hours) Vital Signs Temp Pulse Resp BP Pulse Ox 12/10/21 21:58 36.6 C 77 16 135/73 91 Signed By: <Electronically signed by Merlin Apodaca PA-C> 12/11/21 0749 Total Time Total Time Spent Total Time Spent (In Minutes): 5 Discharge Plan Discharge Items Patient Disposition: Home - Self-Care Reason For Visit: Right Shoulder Osteoarthritis Discharge Diagnosis: Right shoulder osteoarthritis Activity: Per Instructions section Non-emergency contact: Surgeon Call non-emergency contact if: you have any medication questions, your pain is not controlled, you have a fever, your temperature is above 101, your wound has increased redness and your wound has increased drainage Follow-up/Referrals: Yvette Bedolla PA-C [Primary Care Provider] - Diet: Regular Addtl Attending Provider Instructions: ACTIVITY RECOMMENDATIONS: SELF CARE INSTRUCTIONS AFTER TOTAL SHOULDER ARTHROPLASTY A. You may do daily exercises as taught in physical therapy while in hospital. No lifting with the operative arm. Please schedule your outpatient physical therapy appointment to begin within 2-3 days after leaving the hospital. Specific restrictions will be written on your physical therapy prescription that is provided to you. B. You are to wear your sling/immobilizer at all times EXCEPT when performing your daily exercises, participating in physical therapy and for hygiene purposes. C. You may perform dry, daily dressing changes. Please keep your incision covered. You may shower 48 hours after surgery. Do not apply soap or any ointment/lotions directly over incision. Do not soak incision in bath tub/swimming pool. D. You may use ice as needed to operative shoulder. SPECIAL CARE INSTRUCTIONS: MEDICATION INSTRUCTIONS: *It is recommended you take Aspirin 325mg daily for four weeks post-op. VERY IMPORTANT TO READ AND REVIEW A. There are a few signs you need to watch for after you are home. Call [facility] at [phone] if you experience any of the followin. Increased severe shoulder pain. Some pain is expected especially when you exercise. 2. Increased swelling in you shoulder or arm; pain or swelling in either upper extremity. 3. Any fluid drainage from the incision. 4. Shortness of breath or chest pain. B. Please call [facility] at [phone] if you have any questions or concerns about your operation or recovery. C. Call your physician if: 1. Temperature is greater than 101 degrees (F). 2. Pain is not relieved by prescribed pain medications. 3. Increase drainage or redness from incision. 4. Unanswered questions or concerns. FOLLOW UP VISIT: Please call [facility] at [phone] to schedule a follow up appointment with Dr. Valladares or his PA in 12-14 days from your surgery date. Stand-Alone Forms: [facility] [employer], Smoking Cessation Medications and DC Order Prescriptions: New acetaminophen [Tylenol Extra Strength] 500 mg Tablet 1,000 mg PO Q8 Qty: 60 RF: 0 oxycodone 5 mg Tablet 5 - 10 mg PO .Q4h-6h MDD 6 PRN (Reason: pain) Qty: 30 RF: 0 Continued losartan 50 mg Tablet 50 mg PO QAM RF: 0 metformin 500 mg Tablet 500 mg PO QAM RF: 0 pravastatin 40 mg Tablet 40 mg PO QAM RF: 0 atenolol 25 mg Tablet 25 mg PO QAM RF: 0 amlodipine 5 mg Tablet 5 mg PO QAM RF: 0 aspirin [[place] Low Dose Aspirin] 81 mg Tablet,Delayed Release (Dr/Ec) 81 mg PO QAM RF: 0 hydroxyzine HCl 25 mg Tablet 25 mg PO DAILY PRN (Reason: Itching) RF: 0 cholecalciferol (vitamin D3) [Vitamin D3] 25 mcg (1,000 unit) Tablet 25 mcg PO QAM RF: 0 trazodone 50 mg Tablet 50 mg PO HS PRN (Reason: Sleep) RF: 0 Discontinued [place]-3 Capsule 500 mg PO QAM RF: 0 Discharge Orders: Discharge Order (Routine); Ordered 12/11/21 Ordered By: Shaq King Admission Data Admit Date/Time: 12/10/21 17:10 Attending Provider: Brad Valladares Admit Provider: Brad Valladares Primary Care Provider: Yvette Bedolla Other Providers: Luis Eduardo Schultz ; Yobany Ellis Other Interventions: Discharge Summary Assessment (RN) Last Done: 12/11/21 12:54
== END 2021-12-11 15:55 | disposition home or self-care (01) ==
LOC: ASU 11:30 → INTOOBSV 17:10 → 3N 17:10